=== PATIENT | female | born 1995 ===

== ENCOUNTER 2022-09-06 11:04 | Outpatient (CLI) | payer OTHER ==
[~2022-09-06 11:04] MED LIST: GILTUSS LIQUID237 ML PO
== END 2022-09-06 12:04 | disposition home or self-care (01) ==
LOC: PRENATAL 11:04
PROVIDERS: ATTEND Obstetrics & Gynecology Maternal & Fetal Medicine
DX: O35.9XX0 Maternal care for (suspected) fetal abnormality and damage, unspecified, not applicable or unspecified (principal); O35.3XX0 Maternal care for (suspected) damage to fetus from viral disease in mother, not applicable or unspecified; Z3A.22 22 weeks gestation of pregnancy

== ENCOUNTER 2022-11-16 10:48 | Outpatient (CLI) | payer OTHER | END 2022-11-16 12:55 | disposition home or self-care (01) | LOC: PRENATAL 10:48 | PROVIDERS: ATTEND Obstetrics & Gynecology Maternal & Fetal Medicine | DX: O26.849 Uterine size-date discrepancy, unspecified trimester (principal); O36.8199 Decreased fetal movements, unspecified trimester, other fetus; Z3A.32 32 weeks gestation of pregnancy ==